=== PATIENT | female | born 1995 | race Two or more races ===

== ENCOUNTER 2022-01-14 18:13 | Emergency (ER) | payer OTHER ==
[~2022-01-14] VITALS: Ht 152.4 cm; Wt 68.0 kg
== END 2022-01-14 20:57 | disposition home or self-care (01) ==
LOC: ER 18:13
DX: S61.412A Laceration without foreign body of left hand, initial encounter (principal); W26.0XXA Contact with knife, initial encounter; Y93.9 Activity, unspecified; Y92.9 Unspecified place or not applicable; Y99.9 Unspecified external cause status

== ENCOUNTER 2022-01-24 10:49 | Emergency (ER) | payer OTHER ==
[~2022-01-24] VITALS: Ht 154.9 cm; Wt 63.5 kg
== END 2022-01-24 12:40 | disposition home or self-care (01) ==
LOC: ER 10:49
DX: Z48.02 Encounter for removal of sutures (principal)

== ENCOUNTER 2022-11-20 08:42 | Emergency (ER) | payer OTHER ==
[~2022-11-20] VITALS: Ht 154.9 cm; Wt 68.0 kg
[2022-11-20 11:24] LABS: HEMATOCRIT 39.7 % (36.0-45.00); HEMOGLOBIN 13.5 g/dL (12.0-15.00); MEAN CORPUSCULAR HEMOGLOBIN 28.6 pg (27.00-32.0); MEAN CORPUSCULAR HGB CONC 34.1 g/dl (32.0-36.0); PLATELET COUNT 275 K/uL (150-450); RED BLOOD COUNT 4.72 M/uL (4.00-6.00); RED CELL DISTRIBUTION WIDTH 12.9 % (11.5-14.5)
== END 2022-11-20 14:15 | disposition home or self-care (01) ==
LOC: ER 08:42
PROVIDERS: General Practice
DX: J32.8 Other chronic sinusitis (principal); Z88.8 Allergy status to other drugs, medicaments and biological substances; Z20.822 Contact with and (suspected) exposure to COVID-19
CPT/HCPCS: 36415; 70210; 96372; 99284; J1100; J1885

== ENCOUNTER 2023-03-01 12:54 | Emergency (ER) | payer OTHER ==
[~2023-03-01] VITALS: Ht 154.9 cm; Wt 67.6 kg
== END 2023-03-01 17:11 | disposition home or self-care (01) ==
LOC: ER 12:54
DX: H60.8X1 Other otitis externa, right ear (principal); Z88.8 Allergy status to other drugs, medicaments and biological substances

== ENCOUNTER 2023-03-01 23:47 | Emergency (ER) | payer OTHER ==
[~2023-03-01] VITALS: Ht 154.9 cm; Wt 69.4 kg
== END 2023-03-02 | disposition home or self-care (01) ==
LOC: ER
DX: H92.01 Otalgia, right ear (principal); Z88.8 Allergy status to other drugs, medicaments and biological substances
CPT/HCPCS: 36415; 99284; J0696

== ENCOUNTER 2023-03-03 12:44 | Emergency (ER) | payer OTHER ==
[~2023-03-03] VITALS: Ht 154.9 cm; Wt 70.3 kg
== END 2023-03-03 17:49 | disposition home or self-care (01) ==
LOC: ER 12:45
DX: R21 Rash and other nonspecific skin eruption (principal); Z88.8 Allergy status to other drugs, medicaments and biological substances